=== PATIENT | male | born 1945 | race Caucasian/White ===

== ENCOUNTER → 2016-12-29 | Outpatient (CLI) | payer OTHER ==
[~2016-12-29] MED LIST: AMBIEN5 MG; ANTIVERT25 M1 PO; ATIVAN0.5 M1; COMPAZINE25 MG; DALMANE30 MG; EFFEXOR XR75 MG; INDOMETHACIN75 MG; JANUVIA50 MG; METFORMIN HCL500 MG; ONDANSETRON HCL8 MG; PRILOSEC20 MG; ZOFRAN8 MG
== END | disposition home or self-care (01) ==
LOC: LAB 17:03
DX: E86.0 Dehydration (principal)